=== PATIENT | female | born 1945 | race Caucasian/White ===

== ENCOUNTER → 2016-07-13 | Outpatient (CLI) | payer MEDICARE, OTHER | LOC: GMAL 10:24 | PROVIDERS: ATTEND Family Medicine | DX: D51.3 Other dietary vitamin B12 deficiency anemia (principal); E55.9 Vitamin D deficiency, unspecified ==

== ENCOUNTER → 2016-08-10 | Outpatient (CLI) | payer MEDICARE, OTHER ==
--- NOTE | 2016-08-10 10:31 | US ---
Study: Right upper quadrant abdominal ultrasound. Indication: ELEVATED LFTS Technical: Multiplanar, grayscale sonogram of the right upper quadrant of the abdomen obtained. Comparison: None. Findings: The liver is diffusely increased in echogenicity consistent with hepatic steatosis. The liver measures 13.3 cm in length. No discrete live mass. Gallbladder surgically absent. The common bile duct measures 5 mm in diameter. No intrahepatic biliary ductal dilatation. The right kidney is unremarkable. The visualized portions of the aorta and inferior vena cava are normal. The pancreas is unremarkable. Impression: 1. Hepatic steatosis. Electronically signed by: Tono Cortez MD 08/10/2016 10:29
== END | disposition home or self-care (01) ==
LOC: US 09:09
PROVIDERS: ATTEND Family Medicine
DX: R74.0 Nonspecific elevation of levels of transaminase and lactic acid dehydrogenase [LDH] (principal)

== ENCOUNTER → 2016-08-26 | Outpatient (CLI) | payer MEDICARE, OTHER | END | disposition home or self-care (01) | LOC: LAB.O 14:48 | PROVIDERS: ATTEND Family Medicine | DX: E83.118 Other hemochromatosis (principal); R74.0 Nonspecific elevation of levels of transaminase and lactic acid dehydrogenase [LDH] ==

== ENCOUNTER → 2016-11-05 | Outpatient (CLI) | payer MEDICARE, OTHER | END | disposition home or self-care (01) | LOC: GMAL 17:54 | PROVIDERS: ATTEND Family Medicine | DX: E03.9 Hypothyroidism, unspecified (principal) ==

== ENCOUNTER → 2017-08-12 | Outpatient (CLI) | payer MEDICARE, OTHER | LOC: GMAL 10:27 | PROVIDERS: ATTEND Family Medicine | DX: D51.3 Other dietary vitamin B12 deficiency anemia (principal); E55.9 Vitamin D deficiency, unspecified ==

== ENCOUNTER → 2018-02-23 | Outpatient (CLI) | payer MEDICARE, OTHER ==
--- NOTE | 2018-02-23 15:30 | US ---
EXAM DESCRIPTION: Liver: ULTRASOUND. CLINICAL HISTORY: R94.5 COMPARISON: Ultrasound liver 08/10/2016. TECHNIQUE: Transabdominal scannin-dimensional and Doppler modes. FINDINGS: Gallbladder: Has been surgically removed. No fluid in the gallbladder fossa. Common bile duct: caliber 5.1 mm within normal limits. Liver: Increased echogenicity; contour liver capsule smooth where seen. No fluid around the liver. Intrahepatic biliary ducts normal caliber. Doppler hepatopedal flow portal vein. 9.5 mm Long axis right lobe 12.3 Pancreas: normal size and echogenicity. Duct not seen. Right kidney: long axis measures 10.4 cm. Normal Echogenicity. Normal cortical thickness. No hydronephrosis IMPRESSION: 1. Steatosis of the liver without enlargement. Normal intrahepatic ducts and vascularity. Smooth capsule. No ascites. Stable since the prior study. 2. Gallbladder has been surgically removed. Normal caliber of the common bile duct. Pancreas is unremarkable. 3. Normal ultrasound of the right kidney. Electronically signed by: Jacky Castorena MD 02/23/2018 3:29 PM CDT
== END ==
LOC: US 09:42
PROVIDERS: ATTEND Family Medicine
DX: R94.5 Abnormal results of liver function studies (principal); K76.0 Fatty (change of) liver, not elsewhere classified

== ENCOUNTER → 2019-04-10 | Outpatient (CLI) | payer MEDICARE, OTHER | LOC: GMAL 10:31 | PROVIDERS: ATTEND Family Medicine | DX: D51.3 Other dietary vitamin B12 deficiency anemia (principal); E03.8 Other specified hypothyroidism; E55.9 Vitamin D deficiency, unspecified; I10 Essential (primary) hypertension; R73.9 Hyperglycemia, unspecified; Z79.899 Other long term (current) drug therapy ==